=== PATIENT | male | born 1950 | race Caucasian/White ===

== ENCOUNTER 2017-02-08 11:49 | Day surgery (SDC) | payer MEDICARE ==
[~2017-02-08] VITALS: Ht 179.1 cm; Wt 113.4 kg
[~2017-02-08 11:49] MED LIST: ATORVASTATIN CA80 MG PO; FINASTERIDE5 MG PO; GABAPENTIN100 MG PO; GLIPIZIDE5 MG PO; LISINOPRIL20 MG PO; OMEPRAZOLE10 MG PO; PRAVASTATIN20 MG PO; TRESIBA FL100 UNIT/M SC
[2017-02-08 13:42] VITALS: BP 138/75
== END 2017-02-08 14:05 | disposition home or self-care (01) ==
LOC: ENDO 11:49 → ORM 15:45 → ENDO 15:45
PROVIDERS: ATTEND Internal Medicine Gastroenterology
PROC: 0DBL8ZX Excision of Transverse Colon, Via Natural or Artificial Opening Endoscopic, Diagnostic (ICD-10-PCS; principal; 2017-02-08)
PROC: 0DBN8ZX Excision of Sigmoid Colon, Via Natural or Artificial Opening Endoscopic, Diagnostic (ICD-10-PCS; 2017-02-08)
PROC: 0DBK8ZX Excision of Ascending Colon, Via Natural or Artificial Opening Endoscopic, Diagnostic (ICD-10-PCS; 2017-02-08)
PROC: 0DBM8ZX Excision of Descending Colon, Via Natural or Artificial Opening Endoscopic, Diagnostic (ICD-10-PCS; 2017-02-08)
DX: K62.5 Hemorrhage of anus and rectum (principal); R10.33 Periumbilical pain; K64.4 Residual hemorrhoidal skin tags; K64.8 Other hemorrhoids; K57.30 Diverticulosis of large intestine without perforation or abscess without bleeding; D12.3 Benign neoplasm of transverse colon; D12.2 Benign neoplasm of ascending colon; D12.4 Benign neoplasm of descending colon; D12.5 Benign neoplasm of sigmoid colon; I10 Essential (primary) hypertension; E11.9 Type 2 diabetes mellitus without complications; E78.00 Pure hypercholesterolemia, unspecified; Z86.010 Personal history of colon polyps